=== PATIENT | female | born 1975 | race Caucasian/White ===

== ENCOUNTER 2019-06-03 19:53 | Emergency (ER) | payer BC, MEDICARE ==
[~2019-06-03] VITALS: Ht 162.6 cm; Wt 63.0 kg
[2019-06-03] MEDS ORDERED: AZIT250 PO (22:02)
[2019-06-03] MEDS ORDERED: BUPRENORPHINE1 EACH TD (22:17)
[2019-06-03] MEDS ORDERED: DULO30 PO (23:27)
[2019-06-03] MEDS ORDERED: POTA10T PO (23:28)
[2019-06-03] MEDS ORDERED: METO25ER PO (23:28)
[2019-06-04] MEDS ORDERED: Miralax17 GM PO (01:05)
[2019-06-04] MEDS ORDERED: PROM25S PR (01:05)
== END 2019-06-04 01:40 | disposition home or self-care (01) ==
LOC: ER 19:53
DX: K29.70 Gastritis, unspecified, without bleeding (principal); N20.0 Calculus of kidney; E87.6 Hypokalemia; M79.7 Fibromyalgia; Z79.899 Other long term (current) drug therapy
CPT/HCPCS: 36415; 74176; 83690; 93005; 93010; 96374; 99284-25; J1630

== ENCOUNTER 2019-06-20 00:21 | Day surgery (SDC) | payer BC, MEDICARE ==
[~2019-06-20 00:21] MED LIST: AZIT250 PO; BUPRENORPHINE1 EACH TD; DULO30 PO; METO25ER PO; Miralax17 GM PO; POTA10T PO; PROM25S PR
[2019-06-20] MEDS ORDERED: ONDA4 PO (15:08)
[2019-06-20] MEDS ORDERED: LEVSOD25 PO (15:09)
[2019-06-20] MEDS ORDERED: Ventolin/Prove6.7 GM INH (15:10)
[2019-06-20] MEDS ORDERED: NUVIGIL250 MG PO (15:10)
[2019-06-20] MEDS ORDERED: AMPDEX10CR PO (15:12)
== END 2019-06-20 22:59 | disposition home or self-care (01) ==
LOC: ATC 00:21
DX: L40.50 Arthropathic psoriasis, unspecified (principal)
CPT/HCPCS: 96375; 96413; 96415; A9270; J1745; J2930; J7050; Q0163

== ENCOUNTER 2019-07-04 10:43 | Day surgery (SDC) | payer MEDICARE ==
[~2019-07-04] VITALS: Ht 162.6 cm; Wt 60.1 kg
[~2019-07-04 10:43] MED LIST changes: +AMPDEX10CR PO; +LEVSOD25 PO; +NUVIGIL250 MG PO; +ONDA4 PO; +Ventolin/Prove6.7 GM INH
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
--- NOTE | 2019-07-04 13:03 | NUR ---
07/04/19 9700 Debbie Patel LATE ENTRY---PATIENT VERY ANXIOUS UPON ENTRY INTO ENDO ROOM. PATIENT IS GETTING INTO BED (SHE CAME FROM BATHROOM) I GAVE VERSED IN THE IV AND SHE STARTED GETTING LOUD AND SAYING "OH THIS HURTS" AND HOLDING HER HAND UP AND INSISTING SOMETHING IS WRONG WITH THE IV. I REASSURE HER THAT IV IS RUNNING FINE AND ENCOURAGED HER TO RELAX. CONTINUINED GETTING PATIENT INTO BED AND POSITIONED, GAVE ZOFRAN AND REASSURRED PATIENT I WAS STARTING THE PROPOFOL THAT PROCEDURE WOULD BE STARTING SHORTLY AND TO TRY TO RELAX AND DEEP BREATHE. PROCEDURE WAS COMPLETED WITH NO PROBLEMS
--- NOTE | 2019-07-04 13:18 | NUR ---
07/04/19 1318 Nidia Rodriguez DISCHARGE INSTRUCTIONS THROUGHOULY DISCUSSED WITH PATIENT AND MOTHER. DR. MORENO CONSULTED WITH BOTH PATIENT AND MOTHER. THIS RN WENT OVER, CLARIFIED, ANSWERED QUESTIONS REGARDING DR. MORENO'S FINDINGS, AND CONSULT.
== END 2019-07-04 13:08 | disposition home or self-care (01) ==
LOC: ORSCSDS 10:43
PROVIDERS: Student in an Organized Health Care Education/Training Program
PROC: 0DB88ZX Excision of Small Intestine, Via Natural or Artificial Opening Endoscopic, Diagnostic (ICD-10-PCS; principal; 2019-07-04 12:00)
PROC: 0DB58ZX Excision of Esophagus, Via Natural or Artificial Opening Endoscopic, Diagnostic (ICD-10-PCS; principal; 2019-07-04 12:00)
PROC: 0DB68ZX Excision of Stomach, Via Natural or Artificial Opening Endoscopic, Diagnostic (ICD-10-PCS; principal; 2019-07-04 12:00)
DX: K21.9 Gastro-esophageal reflux disease without esophagitis (principal); R11.2 Nausea with vomiting, unspecified; R13.10 Dysphagia, unspecified; K29.70 Gastritis, unspecified, without bleeding; F32.9 Major depressive disorder, single episode, unspecified; I10 Essential (primary) hypertension; E03.9 Hypothyroidism, unspecified; Z79.899 Other long term (current) drug therapy
CPT/HCPCS: 88305; 88342; J2250; J2405; J2704; J7120

== ENCOUNTER 2019-10-07 01:56 | Day surgery (SDC) | payer MEDICARE, OTHER, BC | END 2019-10-07 11:21 | disposition home or self-care (01) | LOC: ATC 01:56 | DX: L40.50 Arthropathic psoriasis, unspecified (principal); G89.4 Chronic pain syndrome | CPT/HCPCS: 96375; 96413; 96415; A9270; J1745; J2930; J7050; Q0163 ==

== ENCOUNTER 2019-12-07 00:09 | Day surgery (SDC) | payer OTHER, MEDICARE | END 2019-12-07 16:22 | disposition home or self-care (01) | LOC: ATC 00:09 | DX: L40.50 Arthropathic psoriasis, unspecified (principal); Z87.442 Personal history of urinary calculi; Z79.899 Other long term (current) drug therapy; Z87.39 Personal history of other diseases of the musculoskeletal system and connective tissue | CPT/HCPCS: 96375; 96413; 96415; A9270; J1745; J2930; J7050; Q0163 ==

== ENCOUNTER 2020-02-24 08:06 | Day surgery (SDC) | payer OTHER ==
[~2020-02-24] VITALS: Ht 162.6 cm; Wt 60.1 kg
[~2020-02-24 08:06] MED LIST changes: +ACIDOPHILUS1 EAC3 PO; +DEXTROAMPHETAMI PO; +HYDSUL200 PO
--- NOTE | 2020-02-24 12:54 | NUR ---
TOOK REPORT FROM OLIVIER. PT LYING IN COMFORTABLY IN GURNY WATCHING TV. STATES NO NEEDS AT THIS TIME. WILL CONTINUE TO MONITOR.
--- NOTE | 2020-02-24 15:41 | NUR ---
02/24/20 1541 Anita Pantoja ALL COUNTS CORRECT.
--- NOTE | 2020-02-24 17:49 | NUR ---
Patient up to Ambulate independently. Gait steady. Discharge instructions reviewed with patient. Patient verbalizes understanding. Copy given to patient to take home. Patient States Post-Procedure ride home has been arranged. Discharged via wheelchair to private car for ride home. MOTHER SIGNS DC SHEET AFTER INSTRUCTIONS REVIEWED, ENC TO FILL [facility] SCRIPT IN [place] [facility] MAY NOT REMAIN OPEN.
== END 2020-02-24 23:17 | disposition home or self-care (01) ==
LOC: ORSCMMR 08:06 → ORD 09:30 → ORSCMMR 23:17
PROVIDERS: Surgery
PROC: 0FT44ZZ Resection of Gallbladder, Percutaneous Endoscopic Approach (ICD-10-PCS; principal; 2020-02-24 11:15)
PROC: BF031ZZ Plain Radiography of Gallbladder and Bile Ducts using Low Osmolar Contrast (ICD-10-PCS; principal; 2020-02-24 11:15)
DX: K80.10 Calculus of gallbladder with chronic cholecystitis without obstruction (principal); R10.9 Unspecified abdominal pain; I10 Essential (primary) hypertension; Z87.891 Personal history of nicotine dependence; E03.9 Hypothyroidism, unspecified; M32.9 Systemic lupus erythematosus, unspecified; Z79.899 Other long term (current) drug therapy
CPT/HCPCS: 74300; 88304; A9270-GY; C1729; J0690; J1100; J1885; J2250; J2405; J2704; J2765; J3010; J7120

== ENCOUNTER 2020-06-20 00:27 | Day surgery (SDC) | payer OTHER ==
--- NOTE | 2020-06-20 17:28 | NUR ---
PT DECIDED TO TAKE SOLUMEDROL, BUT STILL REFUSED TYLENOL. INFORMED PT THAT NEXT VISIT IT WOULD BE A GOOD IDEA TO TAKE ALL PREMEDS. NOTED THAT ON ORDERS
== END 2020-06-20 17:49 | disposition home or self-care (01) ==
LOC: ATC 00:27
DX: L40.50 Arthropathic psoriasis, unspecified (principal)
CPT/HCPCS: 96375; 96413; 96415; J1745; J2930; J7050; Q0163

== ENCOUNTER 2020-11-07 00:09 | Day surgery (SDC) | payer OTHER, SELFPAY ==
[~2020-11-07] VITALS: Wt 65.3 kg
--- NOTE | 2020-11-07 09:12 | NUR ---
Pt requesteed tylenol and angelydryl for infusion.
== END 2020-11-07 10:45 | disposition home or self-care (01) ==
LOC: ATC 00:09
DX: L40.50 Arthropathic psoriasis, unspecified (principal); M32.9 Systemic lupus erythematosus, unspecified; M79.7 Fibromyalgia; I10 Essential (primary) hypertension; Z79.899 Other long term (current) drug therapy
CPT/HCPCS: 36415; 80053; 80061; 85025; 96375; 96413; 96415; A9270; J1745; J2930; J7050

== ENCOUNTER 2021-03-08 05:04 | Day surgery (SDC) | payer OTHER ==
--- NOTE | 2021-03-08 14:25 | NUR ---
PT REPORTS EDEMA OFF AND ON SINCE SEPTEMBER OF THIS YEAR. CURRENTLY HAS 1+ EDEMA TO BILAT FEET UP TO MID SHINS BILAT. PT REPORTS EFM PROVIDER, Jaun MEDEIROS [employer]AGE PROCESSING CLERK, IS AWARE OF EDEMA IS HER LOAD MIXER, DR. HUNT [place]. CALLED DR. HUNT'S OFFICE. NOTIFIED THEM OF EDEMA. NO ORDERS REC'D FOR LABS AT THIS TIME. REQUESTED THAT DR. HUNT'S OFFICE PROVIDE NEW ORDER FOR REMICADE INFUSION ORDER SET. PT REPORTS Jaun MEDEIROS WANTED HER TO HAVE LABS DRAWN. CALLED OUTPATIENT LAB WHO REPORTS Merritt MEDEIROS ORDERED A CHEM 8 FOR PT. CHEM 8 DRAWN WITH IV START.
[2021-03-08] MEDS ORDERED: HYDCHL25 PO (14:59)
[2021-03-08 16:04] LABS: Anion Gap 5 mmol/L (6-16); Blood Urea Nitrogen 12 mg/dL (8-24); Bun/Creatinine Ratio 16.7 (12.0-20.0); CO2, Blood 29 mmol/L (21-32); Calcium, Blood 8.7 mg/dL (8.5-10.1); Chloride, Blood 105 mmol/L (98-108); Creatinine, Blood 0.72 mg/dL (0.40-1.00); Glomerular Filtration Rate >60 (60-); Glucose, Blood 93 mg/dL (70-99); Potassium, Blood 2.7 mmol/L (3.5-5.5); Sodium, Blood 139 mmol/L (136-145)
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
--- NOTE | 2021-03-08 17:16 | NUR ---
PT INFORMED OF DOCTORS OFFICE ADVISING HER TO GOT TO URGENT CARE OR ED. IMFORMED OF RISKS OF NOT GETTING LOW POTASSIUM LEVEL TREATED. PT STATES SHE WILL GO TOMORROW. ADVISED AGAIN TO GO THIS EVENING BUT STATES SHE CAN NOT GO UNTIL THE AM. PT STATES SHE HAS PO POTASSIUM AT HOME THAT SHE IS DUE TO TAKE THIS PM.
== END 2021-03-08 17:14 | disposition home or self-care (01) ==
LOC: ATC 05:04
PROVIDERS: Nurse Practitioner Family
DX: I10 Essential (primary) hypertension (principal); M32.9 Systemic lupus erythematosus, unspecified; L40.50 Arthropathic psoriasis, unspecified; G89.29 Other chronic pain; M79.7 Fibromyalgia; Z79.899 Other long term (current) drug therapy
CPT/HCPCS: 80048; 96375; 96413; 96415; 99211; A9270; J1745; J2930; J7050

== ENCOUNTER → 2021-03-09 | Outpatient (CLI) | payer OTHER ==
[~2021-03-09] MED LIST changes: +HYDCHL25 PO
[2021-03-09 12:45] LABS: Anion Gap 9 mmol/L (6-16); Blood Urea Nitrogen 12 mg/dL (8-24); CO2, Blood 28 mmol/L (21-32); Calcium, Blood 8.9 mg/dL (8.5-10.1); Chloride, Blood 106 mmol/L (98-108); Creatinine, Blood 0.86 mg/dL (0.40-1.00); Glomerular Filtration Rate >60 (60-); Glucose, Blood 119 mg/dL (70-99); Potassium, Blood 3.5 mmol/L (3.5-5.5); Sodium, Blood 143 mmol/L (136-145)
== END | disposition home or self-care (01) ==
LOC: LAB SHORT 12:35 → LAB EV 12:35
PROVIDERS: General Practice
DX: E87.6 Hypokalemia (principal)
CPT/HCPCS: 80048

== ENCOUNTER 2021-07-05 04:06 | Day surgery (SDC) | payer OTHER ==
[~2021-07-05] VITALS: Wt 67.1 kg
== END 2021-07-05 16:37 | disposition home or self-care (01) ==
LOC: ATC 04:06
DX: L40.50 Arthropathic psoriasis, unspecified (principal)
CPT/HCPCS: 96375; 96413; 96415; A9270; J1745; J2930; J7050

== ENCOUNTER 2021-09-09 14:58 | Day surgery (SDC) | payer OTHER ==
[~2021-09-09] VITALS: Wt 70.8 kg
[2021-09-10 08:10] LABS: HCV ANTIBODY <0.1 (0.0-0.9); HEP B SURFACE AB Reactive (.)
== END 2021-09-09 16:40 | disposition home or self-care (01) ==
LOC: ATC 14:58
PROVIDERS: Internal Medicine Rheumatology
DX: L40.50 Arthropathic psoriasis, unspecified (principal)
CPT/HCPCS: A9270; J1745; J2930; J7050

== ENCOUNTER 2021-10-10 08:54 | Emergency (ER) | payer OTHER ==
[~2021-10-10] VITALS: Ht 162.6 cm; Wt 68.0 kg
[2021-10-10] MEDS ORDERED: BUPRENORPHINE HC2 M1 SL (09:18)
[2021-10-10] MEDS ORDERED: BUPRENORPHINE1 EAC6 TD (09:18)
[2021-10-10] MEDS ORDERED: Hydroxychloroq200 MG PO (09:19)
[2021-10-10] MEDS ORDERED: Amphetamine Sal20 MG PO (09:20)
[2021-10-10] MEDS ORDERED: CHLO25B PO (09:20)
[2021-10-10] MEDS ORDERED: OMEP20ER PO (09:21)
== END 2021-10-10 17:26 | disposition home or self-care (01) ==
LOC: ER 08:54
DX: J34.89 Other specified disorders of nose and nasal sinuses (principal); K21.9 Gastro-esophageal reflux disease without esophagitis; I10 Essential (primary) hypertension
CPT/HCPCS: 70551; 96374; 96375; 99284-25; J1790; J2060

== ENCOUNTER → 2022-08-07 | Outpatient (CLI) | payer OTHER ==
[~2022-08-07] MED LIST changes: +Amphetamine Sal20 MG PO; +BUPRENORPHINE HC2 M1 SL; +BUPRENORPHINE1 EAC6 TD; +CHLO25B PO; +Hydroxychloroq200 MG PO; +OMEP20ER PO
[2022-08-07 17:31] LABS: Source, Urine Clean Catch
[2022-08-07 17:34] LABS: Appearance, Urine Hazy (Clear); Bilirubin, Urine Neg (Neg); Blood, Urine Neg (Neg); Color, Urine Yellow (P-Yellow); Glucose Qualitative, Urine Neg (Neg); Ketones, Urine Neg (Neg); Leukocyte Esterase, Urine Neg (Neg); Nitrite, Urine Neg (Neg); Protein, Urine 1+ (Neg); Specific Gravity, Urine 1.015 (1.003-1.022); Urobilinogen, Urine NORM (Normal); pH, Urine 6.5 (5.0-8.0)
[2022-08-07 17:40] LABS: Calcium Oxalate Crystals Many /hpf
[2022-08-07 17:41] LABS: Amorphous Mod (0-Heavy); Bacteria Mod /hpf; Red Blood Cells, Urine 0-2 /hpf (0-2); Squamous Epithelial Cells Many /hpf (Few); White Blood Cells, Urine 0-2 /hpf (0-5)
== END | disposition home or self-care (01) ==
LOC: LAB 13:52 → LAB SHORT 13:52
PROVIDERS: Internal Medicine
DX: R32 Unspecified urinary incontinence (principal)
CPT/HCPCS: 81001

== ENCOUNTER → 2022-09-03 | Outpatient (CLI) | payer OTHER ==
[2022-09-03 16:41] LABS: BASOPHILS ABSOLUTE AUTO 0.05 K/mm3 (0.00-0.23); BASOPHILS PERCENT AUTO 1 % (0-2); EOSINOPHILS ABSOLUTE AUTO 0.09 K/mm3 (0.00-0.68); EOSINOPHILS PERCENT AUTO 2 % (0-6); Hematocrit 38.3 % (33.0-51.0); Hemoglobin 12.4 g/dL (11.5-16.0); IMMATURE GRAN ABSOLUTE AUTO 0.01 K/mm3 (0.00-0.10); IMMATURE GRAN PERCENT AUTO 0 % (0-1); LYMPHOCYTES ABSOLUTE AUTO 1.83 K/mm3 (0.84-5.20); LYMPHOCYTES PERCENT AUTO 37 % (21-46); MONOCYTES ABSOLUTE AUTO 0.34 K/mm3 (0.16-1.47); MONOCYTES PERCENT AUTO 7 % (4-13); Mean Corpuscular HGB 31.5 pg (26.0-34.0); Mean Corpuscular HGB Conc 32.4 g/dL (31.5-36.5); Mean Corpuscular Volume 97 fL (80-100); Mean Platelet Volume 8.9 fL (9.1-12.4); NEUTROPHILS PERCENT AUTO 53 % (41-73); Platelet Count 293 K/mm3 (150-400); RDW Coefficient Variation 12.8 % (11.7-14.2); RDW Standard Deviation 45.8 fL (35.1-46.3); Red Blood Cell Count 3.94 M/mm3 (3.80-5.20); White Blood Cell Count 4.92 K/mm3 (4.00-11.30)
[2022-09-03 17:08] LABS: Bun/Creatinine Ratio 20.3 (12.0-20.0); Calcium, Blood 9.3 mg/dL (8.5-10.1); Creatinine, Blood 0.79 mg/dL (0.40-1.00); Potassium, Blood 4.2 mmol/L (3.5-5.5)
== END | disposition home or self-care (01) ==
LOC: LAB SHORT 16:36
PROVIDERS: Physician Assistant Surgical
DX: M62.81 Muscle weakness (generalized) (principal)
CPT/HCPCS: 80048; 85025

== ENCOUNTER 2023-02-23 03:36 | Day surgery (SDC) | payer OTHER ==
[~2023-02-23] VITALS: Wt 72.2 kg
== END 2023-02-23 17:00 | disposition home or self-care (01) ==
LOC: ATC 03:36
DX: L40.50 Arthropathic psoriasis, unspecified (principal)
CPT/HCPCS: A9270; J2930; J7050; Q5104

== ENCOUNTER 2023-04-06 00:20 | Day surgery (SDC) | payer OTHER ==
[2023-04-06 13:30] VITALS: BP 146/80
--- NOTE | 2023-04-06 15:22 | NUR ---
LAB RESULTS FROM TODAY FAXED TO Jaun RODGERS OFFICE.
== END 2023-04-06 16:20 | disposition home or self-care (01) ==
LOC: ATC 00:20
DX: N64.52 Nipple discharge (principal); L40.50 Arthropathic psoriasis, unspecified
CPT/HCPCS: 84146; A9270; J2930; J7050; Q5104

== ENCOUNTER 2023-08-03 00:27 | Day surgery (SDC) | payer OTHER ==
[2023-08-03 13:31] VITALS: BP 138/85
== END 2023-08-03 16:07 | disposition home or self-care (01) ==
LOC: ATC 00:27
DX: L40.50 Arthropathic psoriasis, unspecified (principal)
CPT/HCPCS: 96375; 96413; 96415; A9270; J2930; J7050; Q5104

== ENCOUNTER 2023-10-07 02:31 | Day surgery (SDC) | payer OTHER ==
--- NOTE | 2023-09-28 16:18 | NUR ---
PT DID NOT SHOW FOR HER APPOINTMENT IN THE [facility] TODAY.
[2023-10-07 15:49] VITALS: BP 134/69
== END 2023-10-07 18:45 | disposition home or self-care (01) ==
LOC: ATC 02:31
DX: L40.50 Arthropathic psoriasis, unspecified (principal); M32.9 Systemic lupus erythematosus, unspecified; Z79.899 Other long term (current) drug therapy
CPT/HCPCS: 96375; 96413; 96415; A9270; J2930; J7050; Q5103

== ENCOUNTER 2024-01-26 00:49 | Day surgery (SDC) | payer OTHER ==
[2024-01-26] MEDS ORDERED: MethylPREDNISolone Sod Succ 125 MG Vial IV SCH (07:20)
[2024-01-26] MEDS ORDERED: DiphenhydrAMINE HCL 25 MG Cap PO SCH (07:20)
[2024-01-26] MEDS ORDERED: Acetaminophen 500 MG Tab PO SCH (07:20)
[2024-01-26] MEDS ORDERED: Infliximab-DYYB 400 MG in NS 250 ML IV SCH (15:45)
[2024-01-26 15:50] VITALS: BP 148/85
== END 2024-01-26 18:15 | disposition home or self-care (01) ==
LOC: ATC 00:49
DX: L40.50 Arthropathic psoriasis, unspecified (principal); Z79.899 Other long term (current) drug therapy; Z79.890 Hormone replacement therapy
CPT/HCPCS: A9270; J2930; J7050; Q5103

== ENCOUNTER 2024-03-23 03:26 | Day surgery (SDC) | payer OTHER ==
[2024-03-23] MEDS ORDERED: DiphenhydrAMINE HCL 25 MG Cap PO SCH (07:00)
[2024-03-23] MEDS ORDERED: Acetaminophen 500 MG Tab PO SCH (07:00)
[2024-03-23] MEDS ORDERED: MethylPREDNISolone Sod Succ 125 MG Vial IV SCH (07:00)
[2024-03-23 14:03] VITALS: BP 143/87
[2024-03-23] MEDS ORDERED: Infliximab-DYYB 400 MG in NS 250 ML IV SCH (14:15)
[2024-03-24 17:00] LABS: HEPATITIS C AB CIA INTERP Negative (Negative); HEPATITIS C ANTIBODY CIA INDEX <0.02 IV
[2024-03-25 07:13] LABS: HEPATITIS B SURFACE ANTIGEN Negative (Negative)
== END 2024-03-23 16:43 | disposition home or self-care (01) ==
LOC: ATC 03:26
PROVIDERS: Internal Medicine Rheumatology
DX: L40.50 Arthropathic psoriasis, unspecified (principal); Z79.890 Hormone replacement therapy; Z79.899 Other long term (current) drug therapy
CPT/HCPCS: 86803; 87340; 96375; 96413; 96415; A9270; J2919; J7050; Q5103

== ENCOUNTER 2024-09-01 02:24 | Day surgery (SDC) | payer OTHER ==
[~2024-09-01] VITALS: Wt 83.7 kg
[2024-09-01] MEDS ORDERED: Acetaminophen 500 MG Tab PO PRN (07:35)
[2024-09-01] MEDS ORDERED: DiphenhydrAMINE HCL 25 MG Cap PO PRN (07:35)
[2024-09-01] MEDS ORDERED: MethylPREDNISolone Sod Succ 125 MG Vial IV SCH (07:35)
[2024-09-01 15:30] VITALS: BP 136/84
[2024-09-01] MEDS ORDERED: NS IV SCH (15:30)
[2024-09-01] MEDS ORDERED: INFLIXIMAB ABDA IV SCH (15:30)
== END 2024-09-01 18:04 | disposition home or self-care (01) ==
LOC: ATC 02:24
DX: L40.50 Arthropathic psoriasis, unspecified (principal); Z79.890 Hormone replacement therapy; Z79.899 Other long term (current) drug therapy
CPT/HCPCS: 96375; 96413; 96415; A9270; J2919; J7050; Q5104

== ENCOUNTER 2024-10-26 05:36 | Day surgery (SDC) | payer OTHER ==
[2024-10-26] MEDS ORDERED: DiphenhydrAMINE HCL 25 MG Cap PO SCH (07:00)
[2024-10-26] MEDS ORDERED: MethylPREDNISolone Sod Succ 125 MG Vial IV SCH (07:00)
[2024-10-26] MEDS ORDERED: Acetaminophen 500 MG Tab PO SCH (07:00)
[2024-10-26 14:26] VITALS: BP 151/86
[2024-10-26] MEDS ORDERED: INFLIXIMAB ABDA IV SCH (14:50)
[2024-10-26] MEDS ORDERED: NS IV SCH (14:50)
== END 2024-10-26 18:28 | disposition home or self-care (01) ==
LOC: ATC 05:36
DX: L40.50 Arthropathic psoriasis, unspecified (principal); M32.9 Systemic lupus erythematosus, unspecified; G89.29 Other chronic pain; Z79.899 Other long term (current) drug therapy
CPT/HCPCS: 96375; 96413; 96415; A9270; J2919; J7050; Q5104

== ENCOUNTER 2025-07-27 12:17 | Emergency (ER) | payer OTHER ==
[~2025-07-27] VITALS: Ht 162.6 cm; Wt 84.4 kg
[2025-07-27 13:46] VITALS: BP 147/94
[2025-07-27] MEDS ORDERED: Baclofen10 MG PO (16:35)
== END 2025-07-27 17:35 | disposition home or self-care (01) ==
LOC: ER 12:17
DX: M25.521 Pain in right elbow (principal); Z87.891 Personal history of nicotine dependence
CPT/HCPCS: 73070; 99283-25; A9270